=== PATIENT | female | born 1995 | race Caucasian/White ===

== ENCOUNTER 2025-04-21 07:39 | Inpatient (IN) ==
[2025-04-21 09:03] LABS: RUPTURE OF MEMBRANES PLUS NEGATIVE (NEGATIVE)
--- NOTE | 2025-04-21 09:03 | HISTORY & PHYSICAL EXAMINATION ---
Admit History Smoking Status: Never smoker Other Maternal History Other Maternal History: Irma is a 30-year-old female at 40 weeks and 3 days gestation, presented with regular contractions, severe pain, and emotional distress. She reported only 4 hours of sleep over two nights. Examination revealed cervix 4-5 cm dilated, 80% effaced, -2 station with intact membranes. Category I FHT. States "I just can't do this anymore" requesting pain intervention and some time for sleep. Likely will desire epidural. Does not want an IV unless she specifically requests the epidural. The patient was admitted to Labor and Delivery with plans for pain management and continued monitoring. We reviewed management options at length. Desires admission for pain management. She has been a patient of midwifery care since 27+5 weeks gestation following her non- move to [facility]. Attended group care/education. Reviewed that risks of labor include but are not limited to section, prolonged labor, vacuum extraction, episotomy, hemorrhage, and additional risks exist re: prolonged second stage related to extraction. Reviewed back up OBGYN is available for consultations, emergency interventions and transfer of care if indicted. In the event of an emergency, ACCEPTS the administration of blood products OB hx: G1: current Medical Hx: Anxiety Surgical Hx: none Social Hx: Never smoker. No ETOH or IVDA. Family Hx: no significant Allergies: PCN, sulfa Medications: PNV, sertraline 75mg PO daily LMP: 07/12/24 BOBBY by LMP: 04/18/25 US: 10/13/24 13w2d, c/w dates Final BOBBY: 04/18/25 Pre- Weight: 188 BMI: 26.9 Blood type: O pos Antibody: neg CBC: H/H: 12.8/36.7 plt 168 RUB: imm VZV: HBsAg: neg HepC: neg RPR/AB-EIA: NR HIV: neg PAP:09/24/24 - normal GC/CT: neg HSV: denies in self and partner Genetic testing: cfDNA WNL Covid: Flu: 10/10/24 FAS: 11/24/24 Placenta: posterior Cord:3VC EJ: WNL EFW: 326g 83% 50gm OGCT: 145 3HR GTT: 83;110;117;147 TDAP: 01/22/2025 Breast Pump: has one GBS: 03/20/25- negative Delivery plan: Desires unmedicated delivery. Declines IV access. Contraception Physical exam: Normocephalic, atraumatic No significant anemia No increased work of breathing Abdomen gravid, soft, nontender. EFW 3900 FHR baseline 135, moderate variability, + accelerations, no decelerations Contractions palpate moderate every 2-4.5 minutes with soft resting tone SVE 4-5/80/-2, vertex, membranes intact (ROM + negative) Mood is good. Assessment: 30 yo @ 40+3 weeks gestation Early labor FHR 135 Cat I GBS NEG Plan: Admit to [facility] for expectant management May desire AROM after pain intervention Declines IV placement unless requesting epidural or increased risk Continuous monitoring/ Intermittent heart rate auscultation. Jacuzzi PRN. Nitrous oxide PRN. Epidural PRN Maternal Request. Anticipate . HPI Current : Vital Signs Temperature 37.0 C 04/21/25 08:05 Pulse Rate 80 04/21/25 08:05 Respiratory Rate 13 04/21/25 08:05 Blood Pressure 121/86 04/21/25 08:05 Meds/Allgy Home Medications Ambulatory Orders Medication Instructions Recorded Confirmed vits no.126-ferrous fum tab PO 01/22/2504/17 28 mg iron-folic acid 800 mcg tablet (Classic ) sertraline 25 mg tablet 75 mg (3 x 25 mg) PO QDAY #9 0 tabs 03/08/25 04/17/25 Allergies Allergies Allergy/AdvReac Type Severity Reaction Status Date / Time Penicillins Allergy Severe Hives Verified 04/17/25 13:28 Sulfa (Sulfonamide Allergy Intermediate Hives Verified 04/17/25 13:28 Antibiotics) PFSH Active Problems All Active Problems (Updated 04/21/25 @ 09:08 by JACOB Sharp) Uterine contractions (Acute) 40 weeks gestation of (Acute) Encounter for screening for Streptococcus B (Acute) Elevated glucose tolerance test (Acute) Supervision of normal (Acute) Anxiety (Acute) Social History Social History (Updated 01/22/25 @ 10:31 by Millicent Hidalgo RN) Smoking Status: Never smoker Physical Abdominal Exam Vital Signs: Temp Pulse Resp BP 37.0 C 80 13 121/86 04/21/25 08:05 04/21/25 08:05 04/21/25 08:05 04/21/25 08:05 Plan for Labor Plan For Labor I expect patient to be DC'd or transferred within 96 hours.: Yes Conclusion/Plan Problem List (1) 40 weeks gestation of : (2) Uterine contractions:
--- NOTE | 2025-04-21 09:03 | PROVIDER PROGRESS NOTE ---
HPI Current : Vital Signs Temperature 37.0 C 04/21/25 08:05 Pulse Rate 80 04/21/25 08:05 Respiratory Rate 13 04/21/25 08:05 Blood Pressure 121/86 04/21/25 08:05 Exam Exam: 30yo at 40w3d for labor and delivery Chief complaint: Regular contractions and severe pain, desires admission for delivery Current status: - 40 weeks and 3 days gestation - Experiencing regular contractions every 4 to 5 minutes - Severe pain, patient feels she "can't do it anymore" - Desires pain intervention - Water appears intact Labor progress: - Contractions for past two nights - Only 4 hours of sleep during this time - Contractions slightly spaced out last night and this morning but increased in intensity - Cervical exam: 4-5 cm dilated, 80% effaced, -2 station, soft, mid-position Obstetric History: - GPAL: A0 L0 - Current : 40 weeks and 3 days gestation Review of Systems: - General: Positive for fatigue - Psychiatric: Positive for tearfulness - Other: Positive for intense pain, regular contractions Physical Examination - General: Patient appears tearful. - Obstetric: Cervix 4-5 cm dilated, 80% effaced, -2 station, soft, mid-position. Amniotic membranes appear intact. Contractions palpated approximately every 2-4 minutes. Laboratory, Imaging, and Diagnostic Test Results - Date: WedApr 21 2025 - NST: Reactive - heart tracing: - heart tones: 130-140 bpm - Moderate variability - Positive accelerations - No decelerations - Category one tracing Plan Plan: Labor at term - 30-year-old at 40 weeks and 3 days gestation presenting for delivery - Regular contractions every 4-5 minutes for the past two nights, with increasing intensity - Experiencing significant pain and emotional distress - Cervical exam: 4-5 cm dilation, 80% effacement, and -2 station - status reassuring: category one heart tracing, heart rate 130-140 bpm, moderate variability, positive accelerations - No decelerations noted - Amniotic membranes appear intact Plan: a. Admit patient to Labor and Delivery unit immediately following triage b. Provide pain management intervention as requested by patient c. Continue monitoring d. Perform regular cervical exams to assess labor progression e. Monitor for spontaneous rupture of membranes Sleep deprivation - Total of only 4 hours of combined sleep over the past two nights - Likely contributing to emotional distress and decreased pain tolerance Plan: a. Ensure a comfortable environment for rest between contractions b. Encourage periods of rest when possible during early labor
[2025-04-21] MEDS ORDERED: SODIUM CHLORIDE FLUSH 0.9% 10 ML SYRINGE IVP PRN (09:05)
[2025-04-21] MEDS ORDERED: OXYTOCIN 10 UNIT/ML VIAL IM PRN (09:05)
[2025-04-21] MEDS ORDERED: lidocaine 1% 20 ML MDV ID PRN (09:05)
[2025-04-21] MEDS ORDERED: miSOPROStoL 200 MCG TABLET PR PRN (09:05)
[2025-04-21] MEDS ORDERED: TERBUTALINE 1 MG/ML VIAL SUBQ PRN (09:05)
[2025-04-21] MEDS ORDERED: hydrALAZINE INJ 20 MG/ML VIAL IVP PRN ×3 (09:05→23:22)
[2025-04-21] MEDS ORDERED: LABETALOL 20 MG/4 ML SYRINGE IVP PRN ×5 (09:05→23:22)
[2025-04-21] MEDS ORDERED: NIFEdipine 10 MG CAPSULE PO PRN ×2 (09:05→23:22)
[2025-04-21] MEDS: MORPHINE 10 MG/ML VIAL IM ONE (09:34)
[2025-04-21] MEDS: ONDANSETRON ODT 4 MG TABLET TL PRN (09:34)
[2025-04-21 09:53] LABS: BASOPHILS % (AUTO) 0.4 %; EOSINOPHILS % (AUTO) 0.2 %; HCT - HEMATOCRIT 37.7 % (37.0-47.0); HGB - HEMOGLOBIN 12.1 g/dL (12.0-16.0); LYMPHOCYTES % (AUTO) 11.3 %; MEAN CORPUSCULAR HEMOGLOBIN 30.8 pg (27.0-31.0); MEAN CORPUSCULAR HGB CONC 32.1 g/dL (32.0-36.0); MEAN CORPUSCULAR VOLUME 95.9 fL (81.0-99.0); MEAN PLATELET VOLUME 11.5 fL (7.9-10.8); MONOCYTES # (AUTO) 0.4 10^3/uL (0.0-1.0); MONOCYTES % (AUTO) 5.1 %; NEUTROPHILS % (AUTO) 82.8 %; PLT - PLATELET COUNT 170 10^3/uL (130-450); RED BLOOD COUNT 3.93 10^6/uL (4.20-5.40); RED CELL DISTRIBUTION WIDTH 12.8 % (12.0-15.0); WHITE BLOOD COUNT 8.4 x10^3/uL (4.8-10.8)
[2025-04-21] MEDS ORDERED: SERTRALINE 50 MG TABLET PO SCH (10:00)
--- NOTE | 2025-04-21 11:49 | PHARMACY PROGRESS NOTE ---
Best Possible Medication History Admit Date and Time: 04/21/25 [id number] Home Medications Medication Instructions Recorded Confirmed Type vits no.126-ferrous fum 1 tab PO DAILY 04/21/25 History 28 mg iron-folic acid 800 mcg tablet (Classic ) sertraline 25 mg tablet 75 mg (3 x 25 mg) PO QDAY #9 0 tabs 03/08/25 04/21/25 Rx Processed by: Pharmacy Medications reviewed in ED?: No Medication History completed: Yes Secondary Source(s): Pharmacy records and Insurance records [facility] Statement: As the person ultimately responsible for medication therapy, providers are able to order a medication from an existing home medication list in [facility] via the "Reconcile Routine" prior to Confirmation of that medication by landing support specialist. Such practice is discouraged except when the physician, in their clinical judgment, deems that a medical need exists for a medication without regard to previous use.
--- NOTE | 2025-04-21 13:52 | PROVIDER PROGRESS NOTE ---
Labor Progress Note Labor Progress Note Labor Progress Note/Additional Text: Active Labor - patient in active labor - Cervical dilation progressed to 6.5 cm/80%/ -2 station - Meconium-stained fluid noted upon rupture of membranes - heart rate baseline 125 bpm with moderate variability, reassuring despite intermittent tracing - Received 5 mg of IM morphine earlier, providing ~2 hours of rest and symptom improvement Plan: a. Proceeded with artificial rupture of membranes after patient consent b. Alerted patient about meconium-stained fluid and expectation of pediatrics presence at delivery c. Patient agreeable now to IV start as she may desire epidural d. Continue heart rate monitoring e. Monitor labor progression f. Prepare for potential epidural placement as patient expressed desire for pain management Medication Allergies - Patient reports allergies to penicillin and sulfa medications
[2025-04-21] MEDS: fentaNYL 100 MCG/2 ML VIAL IVP PRN (15:34)
[2025-04-21] MEDS: SODIUM CHLORIDE FLUSH 0.9% 10 ML SYRINGE IVP SCH (15:40)
[2025-04-21] MEDS: LACTATED RINGERS 1,000 ML IV PRN (17:04)
[2025-04-21] MEDS ORDERED: ROPIVACAINE 0.2% 200 MG/100 ML BAG EP ONE (17:05)
[2025-04-21] MEDS ORDERED: diphenhydrAMINE INJ 50 MG/ML VIAL IVP PRN (17:49)
[2025-04-21] MEDS ORDERED: ONDANSETRON 4 MG/2 ML VIAL IVP PRN (17:49)
[2025-04-21] MEDS ORDERED: ROPIVACAINE 0.2% 200 MG/100 ML BAG EP PRN (17:49)
[2025-04-21] MEDS ORDERED: LACTATED RINGERS 500 ML IV ONE (17:49)
[2025-04-21] MEDS ORDERED: NALBUPHINE 10 MG/ML AMP IVP PRN (17:49)
[2025-04-21] MEDS ORDERED: NALOXONE 0.4 MG/ML VIAL IVP PRN ×2 (17:49→23:22)
[2025-04-21] MEDS ORDERED: METOCLOPRAMIDE 10 MG/2 ML VIAL IVP PRN (17:49)
--- NOTE | 2025-04-21 17:52 | ANESTHESIA PROCEDURE NOTE ---
Pre-Anesthesia VS, & Labs Diagnosis Surgical Diagnosis:: active labor Procedure Procedure: labor epidural Vitals Vital Signs: Temp Pulse Resp BP 37.0 C 80 13 121/86 04/21/25 08:05 04/21/25 08:05 04/21/25 08:05 04/21/25 08:05 NPO NPO: Other (clears from now until delivery) Is Patient ?: Yes Lab Results Current Lab Results: Laboratory Tests 04/21/25 09:43: WBC 8.4, RBC 3.93 L, Hgb 12.1, Hct 37.7, MCV 95.9, MCH 30.8, MCHC 32.1, RDW 12.8, Plt Count 170, MPV 11.5 H, Neut # (Auto) 7.0 H, Lymph # (Auto) 1.0 L, [place] # (Auto) 0.4, Eos # (Auto) 0.0, Baso # (Auto) 0.0, Absolute Nucleated RBC 0.00, Nucleated RBC % 0.0, Blood Type O POSITIVE, Antibody Screen NEGATIVE 04/21/25 09:43 Meds/Allgy Home Medications Ambulatory Orders Medication Instructions Recorded Confirmed vits no.126-ferrous fum 1 tab PO DAILY 04/21/25 28 mg iron-folic acid 800 mcg tablet (Classic ) sertraline 25 mg tablet 75 mg (3 x 25 mg) PO QDAY #9 0 tabs 03/08/25 04/21/25 Allergies Allergies Allergy/AdvReac Type Severity Reaction Status Date / Time Penicillins Allergy Severe Hives Verified 04/17/25 13:28 Sulfa (Sulfonamide Allergy Intermediate Hives Verified 04/17/25 13:28 Antibiotics) PFSH Active Problems All Active Problems (Updated 04/21/25 @ 09:08 by JACOB Sharp) Uterine contractions (Acute) 40 weeks gestation of (Acute) Encounter for screening for Streptococcus B (Acute) Elevated glucose tolerance test (Acute) Supervision of normal (Acute) Anxiety (Acute) Social History Social History (Updated 01/22/25 @ 10:31 by Millicent Hidalgo RN) Smoking Status: Never smoker Do you dip or chew tobacco?: No Anesthesia Exam (Expanded) Exam General: Alert, Oriented x3 and Moderate distress Dental: WNL Mouth Opening: Greater than 4 Fingerbreadths Neck Mobility: Normal Mallampati classification: II Thyromental Distance: greater than 6 cm Respiratory: Lungs clear Cardiovascular: Regular rate Plan Problem List (1) 40 weeks gestation of : (2) Uterine contractions: Plan Anesthesia Type: Epidural Consent for Procedure(s) Verified and Reviewed: Yes Code Status: Attempt Resuscitation ASA Classification ASA classification: 2-Mild systemic disease Is this case an emergency?: No
[2025-04-21] MEDS ORDERED: LIDOCAINE-MPF 2% 5 ML VIAL ONE (18:36)
[2025-04-21] MEDS: ePHEDrine 50 MG/ML VIAL IVP PRN (19:25)
[2025-04-21] MEDS: METHYLERGONOVINE 0.2 MG/ML VIAL IM PRN (21:29)
[2025-04-21] MEDS: CARBOPROST TROMETHAMINE 250 MCG/ML VIAL IM PRN (21:29)
[2025-04-21] MEDS: miSOPROStoL 200 MCG TABLET BC PRN (21:30)
[2025-04-21] MEDS: TRANEXAMIC ACID IN NACL 1,000 MG/100 ML BAG IV PRN (21:32)
[2025-04-21] MEDS: SERTRALINE 50 MG TABLET PO SCH (21:48)
[2025-04-21] MEDS: LOPERAMIDE 2 MG CAPSULE PO PRN (21:49)
[2025-04-21] MEDS: OXYTOCIN/SODIUM CHLORIDE 500 ML IV PRN (21:56)
--- NOTE | 2025-04-21 23:03 | DELIVERY NOTE ---
Delivery Note Delivery Comments (Free Text/Narrative) Delivery Comments (Free Text/Narrative): This 30 -year-old, @ 40+3 weeks gestation presented to [facility] about 0800 in early labor. Cervix was 4.5/80/-2 and Vertex presentation by exam. GBS negative, treated. AROM @1233 , small amount of meconium stained fluid. FHR pattern demonstrated 130-145 baseline in a category I prior to second stage. Normal labor course. Epidural placed upon maternal request. She then progressed to complete/complete @ 2021. Pre-vaginal delivery time out completed and risk and interventions of both shoulder dystocia and hemorrhage reviewed. Second stage then began. : School Counsellor called to attend delivery given presence of meconium. Straight catheterization prior to delivery approximately 100cc concentrated urine. Normal spontaneous vaginal delivery of a viable female infant on 04/21/2025 @ 2106. No nuchal cord. The was placed on maternal abdomen, stimulated, dried and placed skin to skin. Apgars 8 & 10 @ 1 & 5 minutes. The umbilical cord was allowed to stop pulsating at which time it was doubly clamped by delivering provider and cut by FOB. 3VC. Cord blood was obtained. Fundal massage and gently cord traction applied for active management of the third stage, placenta delivered spontaneously and intact and appeared normal @ 2015. Significant brisk bleeding began prior to placental delivery, decreased significantly following TXA and perineal repair completed. Second degree midline perineal laceration repaired under epidural anesthesia with running 3-0 vicryl rapide, repaired in standards fashion under sterile conditions. Fundus remained moderate to firm but significant blood loss resumed and continued. Coordinated efforts by RN team to manage hemorrhage included ongoing fundal massage, medication administration of TXA, IM Pitocin, IV Pitocin bolus, 600mcg BC misoprostol, methergine, hemabate, pitocin (#2 bag) @ maintenance rate . Dr. Walls called to unit given the excessive bleeding and plan/completion for EBENEZER placement. EBENEZER placed at 2126. QBL 1800cc. Placenta was not sent to pathology. weight 3560g. Reviewed plan for EBENEZER, ongoing management with Dr. Walls. Fundus remained firm with EBENEZER in place. Lochia in EBENEZER suction did not reach suction canister. EBENEZER in place x1 hour. Suction turned off and fundus remained firm with minimal uterine bleeding with of EBENEZER in place and suction off. EBENEZER left in place without suction x1 hour prior to removal. Once removed, Fundus firm below u and scant bleeding, approximately 45 minutes after removal of EBENEZER device, bleeding returned to moderate. Unable to void on bedpan. Indwelling catheter placed. Seco nd dose of TXA ordered and PO methergine q 4 hours to follow. Inspection of the perineum noted a small second degree midline laceration. Upon re-inspection the patient was hemostatic. Needle and sponge counts were correct. Tissues well approximated. Skin to skin initiated. Family bonding well. Both mother and baby are in stable condition.
[2025-04-21] MEDS ORDERED: SIMETHICONE CHEW 80 MG TABLET PO PRN (23:22)
[2025-04-21] MEDS ORDERED: LABETALOL 5 MG/1 ML 20 ML MDV IVP PRN (23:22)
[2025-04-21] MEDS ORDERED: OXYTOCIN/SODIUM CHLORIDE 500 ML IV PRN (23:22)
[2025-04-22] MEDS: CHERRY SYRUP 10 ML UDC PO ONE (00:07)
[2025-04-22] MEDS: METHYLERGONOVINE 0.2 MG/ML VIAL PO SCH (00:07)
[2025-04-22] MEDS: TRANEXAMIC ACID IN NACL 1,000 MG/100 ML BAG IV STA (00:08)
[2025-04-22] MEDS: ACETAMINOPHEN 500 MG TABLET PO PRN (02:34)
[2025-04-22] MEDS ORDERED: CHERRY SYRUP 10 ML UDC PO ONE (08:13)
[2025-04-22 08:55] LABS: HCT - HEMATOCRIT 29.9 % (37.0-47.0); HGB - HEMOGLOBIN 9.6 g/dL (12.0-16.0); MEAN CORPUSCULAR HEMOGLOBIN 31.8 pg (27.0-31.0); MEAN CORPUSCULAR HGB CONC 32.1 g/dL (32.0-36.0); MEAN PLATELET VOLUME 11.5 fL (7.9-10.8); RED BLOOD COUNT 3.02 10^6/uL (4.20-5.40); RED CELL DISTRIBUTION WIDTH 13.2 % (12.0-15.0)
[2025-04-22] MEDS ORDERED: CHERRY SYRUP 10 ML UDC PO PRN (10:06)
[2025-04-22] MEDS: IBUPROFEN 600 MG TABLET PO PRN (10:07)
--- NOTE | 2025-04-22 11:52 | PROVIDER PROGRESS NOTE ---
Subjective Subjective Subjective: 30yo PPD #1 vaginal delivery with significant hemorrhage Delivery details: - Normal spontaneous vaginal delivery at 40 weeks and 3 days gestation - Female infant, weight 3560 grams - scores: 8 and 10 - Complications: Significant hemorrhage (estimated blood loss 1800 cc) - Secondary midline laceration repaired under epidural anesthesia - Pratibha balloon placement for hemorrhage control Objective - Feeling "okay" overall - Minimal bleeding currently - Indwelling catheter in place - Plan to remove Rose catheter and assist with ambulation - Considering IV iron administration - Minimal edema - Continuing to monitor bleeding and discuss ongoing risks of hemorrhage FF below U small rubra lochia symptoms: - Lower back soreness from epidural - Vaginal tenderness - Uterine discomfort from frequent Fundal assessments - Significant cramping - well Bleeding interventions - TXA (Tranexamic acid) - received two doses - Pitocin (Oxytocin) -IM, bolus and maintanence dose - Misoprostol 600 micrograms buccal - Methergine IM = Hemabate (Carboprost) - Methergine PO - PRATIBHA placement Allergies: - Penicillin - Sulfa Obstetric History: - GTPAL: G1 T1 L1 Review of Systems: - General: Positive for soreness - Musculoskeletal: Positive for lower back pain - Genitourinary: Positive for vaginal tenderness - Other: Positive for uterine cramping Current Medications Current Medications Current Medications: Current Medications Generic Name Dose Route Start Last Admin Trade Name Freq PRN Reason Stop Dose Admin Acetaminophen 1,000 mg 04/21/25 23:22 04/22/25 11:34 Acetaminophen 500 Mg Tablet PO 1,000 mg Q8HR PRN Administration Mild Pain or Fever>38C(100.4F) Hernández Syrup 5 ml 04/22/25 10:06 Hernández Syrup 10 Ml Udc PO PRN PRN PER PHYSICIAN ORDER Diphenhydramine HCl 12.5 - 25 mg 04/21/25 17:49 Diphenhydramine Inj 50 Mg/Ml Vial IVP Q6HR PRN ITCHING Docusate Sodium 100 mg 04/22/25 09:00 Docusate Sodium 100 Mg Capsule PO BID MARY Ephedrine Sulfate 5 mg 04/21/25 17:49 04/21/25 19:35 Ephedrine 50 Mg/Ml Vial IVP 5 mg Q5M PRN Administration For SBP<100;give until SBP>100 Hydralazine HCl 5 - 10 mg 06/21/25 09:05 Hydralazine Inj 20 Mg/Ml Vial IVP Q20M PRN SBP> or= 160 OR DBP> or= 110 Protocol Hydralazine HCl 10 mg 04/21/25 23:22 Hydralazine Inj 20 Mg/Ml Vial IVP .ONCE PRN SBP> or= 160 OR DBP> or= 110 Protocol Hydralazine HCl 5 - 10 mg 04/21/25 23:22 Hydralazine Inj 20 Mg/Ml Vial IVP Q20M PRN SBP >=160 and/or DBP >=110 Protocol Lactated Ringer's 500 mls @ 999 mls/hr 04/21/25 09:05 04/22/25 04:35 Lr IV 999 mls/hr PRN PRN Administration Heart Rate Abnormalities Oxytocin/Sodium Chloride 500 mls @ 999 mls/hr 04/21/25 09:05 04/21/25 21:57 Pitocin/Sodium Chloride IV 999 milliunit/min PRN PRN 999 mls/hr POST- HEMORR PREVENTION Administration Protocol 999 MILLIUNIT/MIN Tranexamic Acid 1,000 mg in 100 mls @ 600 mls/hr 04/21/25 09:05 04/21/25 21:32 Tranexamic 1,000 Mg/100ml-Nacl IV 600 mls/hr Q30M PRN Administration EBL >1200mL and within 3hr Ropivacaine 200 mg in 100 mls @ 0 mls/hr 04/21/25 17:49 Naropin 0.2% EP PRN PRN PAIN Protocol Per Protocol Oxytocin/Sodium Chloride 500 mls @ 999 mls/hr 04/21/25 23:22 Pitocin/Sodium Chloride IV PRN PRN POST- HEMORR PREVENTION Protocol 999 MILLIUNIT/MIN Ibuprofen 600 mg 04/21/25 23:22 04/22/25 10:07 Ibuprofen 600 Mg Tablet PO 600 mg Q6HR PRN Administration Moderate Pain (Level 4-6) Labetalol HCl 20 - 80 mg 04/21/25 09:05 Labetalol 20 Mg/4 Ml Syringe IVP Q10M PRN SBP> or= 160 OR DBP> or= 110 Protocol Labetalol HCl 20 mg 04/21/25 09:05 Labetalol 20 Mg/4 Ml Syringe IVP .ONCE PRN SBP> or= 160 OR DBP> or= 110 Protocol Labetalol HCl 20 - 40 mg 04/21/25 09:05 Labetalol 20 Mg/4 Ml Syringe IVP Q10M PRN SBP> or= 160 OR DBP> or= 110 Protocol Labetalol HCl 20 - 80 mg 04/21/25 23:22 Labetalol 5 Mg/1 Ml 20 Ml Mdv IVP Q10M PRN SBP> or= 160 OR DBP> or= 110 Protocol Labetalol HCl 20 - 40 mg 04/21/25 23:22 Labetalol 20 Mg/4 Ml Syringe IVP Q10M PRN SBP> or= 160 OR DBP> or= 110 Protocol Labetalol HCl 20 mg 04/21/25 23:22 Labetalol 20 Mg/4 Ml Syringe IVP .ONCE PRN SBP >=160 and/or DBP >=110 Protocol Loperamide HCl 2 mg 04/21/25 21:40 04/21/25 21:49 Loperamide 2 Mg Capsule PO 2 mg QID PRN Administration Diarrhea Metoclopramide HCl 10 mg 04/21/25 17:49 Metoclopramide 10 Mg/2 Ml Vial IVP Q6HR PRN Nausea / Vomiting Misoprostol 800 mcg 04/21/25 09:05 Misoprostol 200 Mcg Tablet IL .ONCE PRN Hemorrhage Nalbuphine HCl 2.5 - 5 mg 04/21/25 17:49 Nalbuphine 10 Mg/Ml Amp IVP Q4H PRN ITCHING Naloxone HCl 0.1 mg 04/21/25 17:49 Naloxone 0.4 Mg/Ml Vial IVP Q2M PRN RR<8 Naloxone HCl 0.4 mg 04/21/25 23:22 Naloxone 0.4 Mg/Ml Vial IVP .ONCE PRN Opioid Overdose Nifedipine 10 - 20 mg 04/21/25 09:05 Nifedipine 10 Mg Capsule PO Q20M PRN SBP> or= 160 OR DBP> or= 110 Protocol Nifedipine 10 - 20 mg 04/21/25 23:22 Nifedipine 10 Mg Capsule PO Q20M PRN SBP >=160 and/or DBP >=110 Protocol Ondansetron HCl 4 mg 04/21/25 09:19 04/21/25 15:36 Ondansetron Odt 4 Mg Tablet TL 4 mg Q4HR PRN Administration Nausea / Vomiting Ondansetron HCl 4 mg 04/21/25 17:49 Ondansetron 4 Mg/2 Ml Vial IVP Q6HR PRN Nausea / Vomiting Oxytocin 10 unit 04/21/25 09:05 Oxytocin 10 Unit/Ml Vial IM .ONCE PRN Step One if no IV access. Sertraline HCl 75 mg 04/21/25 21:00 04/21/25 21:48 Sertraline 50 Mg Tablet PO 75 mg QPM MARY Administration Simethicone 80 mg 04/21/25 23:22 Simethicone Chew 80 Mg Tablet PO TID PRN Gas Sodium Chloride 10 ml 04/21/25 09:05 Sodium Chloride Flush 0.9% 10 Ml Syringe IVP PRN PRN NEEDED PER PROVIDER ORDERS Sodium Chloride 10 ml 04/21/25 10:00 04/21/25 15:40 Sodium Chloride Flush 0.9% 10 Ml Syringe IVP 10 ml Q8H MARY Administration Objective Vital Signs/Intake & Output Reviewed Vital Signs: Yes Vital Signs: Vital Signs x48h Temp Pulse Resp BP Pulse Ox 04/22/25 04:50 36.9 C 96 16 118/68 97 Intake & Output: Intake & Output 04/19/25 04/20/25 04/21/25 04/22/25 23:59 23:59 23:59 23:59 Intake Total 1617 / 1617 1400 / 1400 Output Total 400 / 400 Balance 1217 / 1217 1400 / 1400 Weight (kg) 225 lb Objective Comments/Other: Laboratory - Date: 04/21/2025 (Admission) - CBC: Hemoglobin 12.1 g/dL, Hematocrit 37.7%, Platelets 170 - Date: 04/22/2025 (Morning) - CBC: Hemoglobin 9.6 g/dL, Hematocrit 29.9%, Platelets 137 Lab Results 04/22/25 08:44 Other Labs: Lab Results x24hrs 04/22/25 Range/Units 08:44 WBC 9.0 (4.8-10.8) x10^3/uL RBC 3.02 L (4.20-5.40) 10^6/uL Hgb 9.6 L (12.0-16.0) g/dL Hct 29.9 L (37.0-47.0) % MCV 99.0 (81.0-99.0) fL MCH 31.8 H (27.0-31.0) pg MCHC 32.1 (32.0-36.0) g/dL RDW 13.2 (12.0-15.0) % Plt Count 137 (130-450) 10^3/uL MPV 11.5 H (7.9-10.8) fL Assessment/Plan Problem List (1) hemorrhage: Impression: Hemorrhage - Significant hemorrhage with estimated blood loss of 1800 cc - Multiple interventions implemented: TXA, Pitocin, misoprostol, methergine, Hemabate, Pratibha balloon - Bleeding became brisk after Pratibha removal, requiring additional medication - Hemoglobin dropped from 12.1 on admission to 9.6 - Currently, bleeding reported as minimal Plan: - Continue monitoring for ongoing risk of hemorrhage - Consider IV iron administration - Discontinue oral methergine after morning dose - Remove Rose catheter - Assist with ambulation - Reassess for discharge readiness tomorrow (2) Vaginal delivery: Impression: see #3 (3) care and examination of lactating mother: Impression: Care - Patient delivered at 40 weeks and 3 days gestation - Experiencing soreness in lower back from epidural site, vaginal tenderness, and uterine cramping - Patient reports feeling "okay" despite recent interventions and blood loss Plan: - Continue care and monitoring - Provide pain management as needed - Educate on normal symptoms and warning signs - Plan for discharge tomorrow if recovery progresses as expected
[2025-04-22] MEDS ORDERED: METHYLERGONOVINE 0.2 MG/ML VIAL ONE (16:18)
[2025-04-22] MEDS: DOCUSATE SODIUM 100 MG CAPSULE PO SCH (17:19)
[2025-04-23 07:54] LABS: BASOPHILS % (AUTO) 0.4 %; EOSINOPHILS # (AUTO) 0.1 10^3/uL (0.0-0.7); EOSINOPHILS % (AUTO) 1.1 %; HCT - HEMATOCRIT 26.7 % (37.0-47.0); HGB - HEMOGLOBIN 8.6 g/dL (12.0-16.0); LYMPHOCYTES % (AUTO) 12.1 %; MEAN CORPUSCULAR HEMOGLOBIN 31.9 pg (27.0-31.0); MEAN CORPUSCULAR HGB CONC 32.2 g/dL (32.0-36.0); MEAN CORPUSCULAR VOLUME 98.9 fL (81.0-99.0); MEAN PLATELET VOLUME 10.7 fL (7.9-10.8); MONOCYTES # (AUTO) 0.4 10^3/uL (0.0-1.0); MONOCYTES % (AUTO) 5.4 %; NEUTROPHILS # (AUTO) 6.4 10^3/uL (1.5-6.6); NEUTROPHILS % (AUTO) 80.6 %; PLT - PLATELET COUNT 119 10^3/uL (130-450); RED CELL DISTRIBUTION WIDTH 13.3 % (12.0-15.0); WHITE BLOOD COUNT 7.9 x10^3/uL (4.8-10.8)
[2025-04-23 09:36] VITALS: O2SAT 97
[2025-04-23] MEDS ORDERED: FERRIC GLUCONATE 62.5 MG/5 ML VIAL IVP ONE (11:29)
--- NOTE | 2025-04-23 11:30 | Discharge Summary ---
Discharge Summary HOSPITAL COURSE Hospital Course: Date of Admission: 04/21/2025 Date of Discharge: 04/23/2025 Diagnosis on admission: 30 yo @ 40+3 weeks gestation Early labor FHR 135 Cat I GBS NEG Diagnosis on Discharge 30 yo s/p PPD#2 s/p post hemorrhage anemia related to acute blood loss Physical exam: Normocephalic, atraumatic Lungs CTAB Normal uterine involution, FF below umbilicus Small bleeding minimal perineal discomfort. Bilateral LE's no edema Mood is good. Brief History: This 30 -year-old, @ 40+3 weeks gestation presented to [facility] about 0800 in early labor. Cervix was 4.5/80/-2 and Vertex presentation by exam. GBS negative, treated. AROM @1233 , small amount of meconium stained fluid. FHR pattern demonstrated 130-145 baseline in a category I prior to second stage. Normal labor course. Epidural placed upon maternal request. She then progressed to complete/complete @ 2021. Pre-vaginal delivery time out completed and risk and interventions of both shoulder dystocia and hemorrhage reviewed. Second stage then began. : [employer] called to attend delivery given presence of meconium. Straight catheterization prior to delivery approximately 100cc concentrated urine. Normal spontaneous vaginal delivery of a viable female on 04/21/2025 @ 2106. No nuchal cord. The was placed on maternal abdomen, stimulated, dried and placed skin to skin. Apgars 8 & 10 @ 1 & 5 minutes. The umbilical cord was allowed to stop pulsating at which time it was doubly clamped by delivering provider and cut by FOB. 3VC. Cord blood was obtained. Fundal massage and gently cord traction applied for active management of the third stage, placenta delivered spontaneously and intact and appeared normal @ 2016. Significant brisk bleeding began prior to placental delivery, decreased significantly following TXA and perineal repair completed. Second degree midline perineal laceration repaired under epidural anesthesia with running 3-0 vicryl rapide, repaired in standards fashion under sterile conditions. Fundus remained moderate to firm but significant blood loss resumed and continued. Coordinated efforts by RN team to manage hemorrhage included ongoing fundal massage, medication administration of TXA, IM Pitocin, IV Pitocin bolus, 600mcg BC misoprostol, methergine, hemabate, pitocin (#2 bag) @ maintenance rate . Dr. Walls called to unit given the excessive bleeding and plan/completion for EBENEZER placement. EBENEZER placed at 2126. QBL 1800cc. Placenta was not sent to pathology. weight 3560g. Reviewed plan for EBENEZER, ongoing management with Dr. Walls. Fundus remained firm with EBENEZER in place. Lochia in EBENEZER suction did not reach suction canister. EBENEZER in place x1 hour. Suction turned off and fundus remained firm with minimal uterine bleeding with of EBENEZER in place and suction off. EBENEZER left in place without suction x1 hour prior to removal. Once removed, Fundus firm below u and scant bleeding, approximately 45 minutes after removal of EBENEZER device, bleeding returned to moderate. Unable to void on bedpan. Indwelling catheter placed. Second dose of TXA ordered and PO methergine q 4 hours to follow. She has been doing well in her course. She is ambulating and tolerating a regular diet. She is urinating without difficulty and her lochia is normal. Significant drop in H&H on PPD#2. Not symptomatic. IV iron infusion given. Her pain is well controlled without narcotic management. She will be discharged to home today on day 2 and encouraged IBU, tylenol and stool softeners PRN. She intends to follow up with [facility] in 1 week for telehealth appointment. She has been given precautions to call if she has any new or worsening sx such as fevers, chills, abdominal pain, increasing bleeding, or foul smelling vaginal lochia. preeclamptic precautions reviewed as well. ALLERGIES Allergies Allergy/AdvReac Type Severity Reaction Status Date / Time Penicillins Allergy Severe Hives Verified 04/17/25 13:28 Sulfa (Sulfonamide Allergy Intermediate Hives Verified 04/17/25 13:28 Antibiotics) MEDICATIONS Ambulatory Orders Medication Instructions Recorded Confirmed vits no.126-ferrous fum 1 tab PO DAILY 04/21/25 28 mg iron-folic acid 800 mcg tablet (Classic ) sertraline 25 mg tablet 75 mg (3 x 25 mg) PO QDAY #9 0 tabs 03/08/25 04/21/25 PHYSICAL EXAM AT DISCHARGE Vital Signs: Vital Signs x48h Temp Pulse Resp BP BP Pulse Ox 04/23/25 09:33 36.5 C 100 16 117/62 97 04/23/25 04:30 36.7 C 91 16 99/35 L 100/39 L 95 LABS 04/23/25 07:46 Discharge Plan Discharge Patient Disposition: 01 Home, Self Care Prescriptions: Continued sertraline 25 mg tablet 75 mg PO QDAY Qty: 90 3RF Classic 28 mg iron- 800 mcg tablet 1 tab PO DAILY Print Language: Arabic Patient Instructions: Holds
[2025-04-23] MEDS: FERRIC GLUCONATE 125 MG in SODIUM CHLORIDE 0.9% 100ML 100 ML IV ONE (12:43)
[2025-04-23 13:07] VITALS: BP 117/65; TEMP 98.1
--- NOTE | 2025-04-23 14:52 | Labor Flowsheet ---
Labor Flowsheet Datetime Report Generated by CPN: 04/23/2025 14:52 Datetime: 04/23/2025 12:46 VITAL SIGNS NBP Sys/Jena/Mean (mmHg): 117 : 65 : 76 Pulse: 101 Datetime: 04/22/2025 16:30 SpO2 (%): 96 Datetime: 04/21/2025 23:30 Stage of : Recovery Datetime: 04/21/2025 23:00 Pain Presence: Intermittent Pain Type: Cramping Pain Location: Abdomen Datetime: 04/21/2025 22:45 Respirations: 16 Datetime: 04/21/2025 22:30 PAIN Pain Scale: 2 Datetime: 04/21/2025 21:46 Membranes Ruptured Date/Time: 04/21/2025 12:33 Datetime: 04/21/2025 21:45 LaborFlag: Labor Datetime: 04/21/2025 20:56 FHR Baseline Rate : 145 Variability: Moderate 6-25 bpm Decelerations: Early; Variable Pushing Progress: Pushing Effectively with Contractions Datetime: 04/21/2025 20:43 UTERINE ACTIVITY Monitor Mode: External Frequency (min): 2-3 Quality: Strong Duration (sec): 50-60 Resting Tone (Palpate): Relaxed FHR Baseline Changes: No Baseline Change Accelerations: 15X15 Datetime: 04/21/2025 20:38 Pushing Position: Pushing with Contractions Datetime: 04/21/2025 20:27 ASSESSMENT A Monitor Mode: External US Oxygen Method: Room Air STAGE 2 Pushing: Coached on Pushing; No Urge to Push Preparation for Delivery: Setup for Delivery Datetime: 04/21/2025 20:22 Vaginal Bleeding: Normal Show Cervix, Consistency: Soft Cervix, Position: Anterior Datetime: 04/21/2025 20:19 VAGINAL EXAM Dilatation (cm): 10.0 Effacement (%): 100 Station: 2 Exam by: Blaise Soria Datetime: 04/21/2025 20:14 Category: Category I Datetime: 04/21/2025 20:09 Pain Coping: Sleeping Datetime: 04/21/2025 20:00 Monitor Interventions for UA: Bush Adjusted Datetime: 04/21/2025 19:46 Monitor Interventions for FHR: Ultrasound Adjusted Datetime: 04/21/2025 19:35 Temperature (C): 36.8 Amniotic Fluid Amount: Small MEDICATIONS Magnesium/Antihypertensives: Ephedrine IV (mg) @ 5 Datetime: 04/21/2025 19:25 Medication Comments: Ephedrine 5mg IVP Datetime: 04/21/2025 19:23 Anesthesia Comments: Anesthesia notified of low blood pressure and interventions (fluid bolus and plan to administer 5 mg ephedrine IVP) Datetime: 04/21/2025 19:15 COMMUNICATION Communication: Report Given to @ Nurse Receiving Report: Neil Hoang, RN Datetime: 04/21/2025 19:05 PATIENT CARE IV/Blood Work: IV Bolus Started Patient Care Comments: LR bolus, 250ml Datetime: 04/21/2025 19:00 Pain Assessment Comments: throbbing sensation in vagina Datetime: 04/21/2025 18:58 Comments: Doubling Datetime: 04/21/2025 18:47 Contraction Comments: toco baselined Datetime: 04/21/2025 18:45 Actions for Decelerations: Side to Side; Blood Pressure Datetime: 04/21/2025 18:30 Pattern: Normal: <= 5 Contractions in 10 Minutes Datetime: 04/21/2025 18:19 Patient Position/Activity: Left Lateral Datetime: 04/21/2025 17:49 Provider Reviewed Strip: Yes Notification Reason: Status Update; Pain Datetime: 04/21/2025 17:30 Epidural Procedure: Loading Dose Epidural Procedure Other: Pump Started Datetime: 04/21/2025 17:15 Epidural Positioning: Sitting Datetime: 04/21/2025 17:09 PROCEDURE TIME OUT Procedure Verify: Accurate Procedure Consent Form Datetime: 04/21/2025 17:06 ANESTHESIA Anesthesia Plans: Epidural Datetime: 04/21/2025 16:58 Analgesics/Sedatives: Fentanyl (mcg) @ 50 Datetime: 04/21/2025 16:01 Strip Reviewed by: Burckhardt, CNM Datetime: 04/21/2025 15:36 Antiemetics/Antacids: Zofran (mg) @ 4 Datetime: 04/21/2025 13:46 I/O Interventions: Up to BR Datetime: 04/21/2025 12:33 Membrane Status: Ruptured Membranes Rupture Method: Artificial Amniotic Fluid Color: Light Meconium Datetime: 04/21/2025 11:07 Pain Relief Measures: Comfort Measures Comfort Measures: Breathing/Relaxation Datetime: 04/21/2025 10:00 Temperature Route: Oral
== END 2025-04-23 14:50 | disposition home or self-care (01) | DRG 768 ==
LOC: WFO 07:39 → FBP 07:43
PROVIDERS: ADMIT Nurse Practitioner; ATTEND Nurse Practitioner
DX: O77.0 Labor and delivery complicated by meconium in amniotic fluid; O72.1 Other immediate postpartum hemorrhage; F41.9 Anxiety disorder, unspecified; Z3A.40 40 weeks gestation of pregnancy; Z37.0 Single live birth; Z79.899 Other long term (current) drug therapy; O99.344 Other mental disorders complicating childbirth; O70.1 Second degree perineal laceration during delivery; O48.0 Post-term pregnancy